=== PATIENT | male | born 1990 | race Two or more races ===

== ENCOUNTER → 2017-04-18 | Outpatient (CLI) | payer BC ==
--- NOTE | ~2017-04-18 | EE ---
Unit #: [id number] #: [id number] Patient: EVERT HOWARD [id number] [address] [address] [id number] O MR#: [id number] NAME: EVERT HOWARD : 1990 SEX: M STUDY DATE/TIME: 04/18/2017 UNIT: CEEG ROOM: STUDY DESCRIPTION: EEG Attending Physician: Anna Hernandez M.D. Referring Physician: Anna Hernandez M.D. Primary Care Physician: No Primary Care Physician NEURODIAGNOSTICS REPORT EXAM EEG. TECH Amanda. REASON FOR STUDY Seizures. TECHNICAL INFORMATION This is a routine EEG performed using the standard international 10-20 system of electrode placement. Photic stimulation was performed. Hyperventilation was also performed. REPORT Throughout the entire study, the best background rhythm seen is approximately 9-10 Hz. This rhythm is seen in both posterior head regions symmetrically and does attenuate to eye opening and closure. Hyperventilation was performed, which failed to reproduce any abnormal buildup. Photic stimulation was performed, which did not elicit any specific epileptiform abnormalities. Throughout the entire study there were no electrographic seizures recorded, nor were there any independent epileptiform abnormalities seen. There was no sleep recorded during the EEG. INTERPRETATION This is a normal awake EEG. A normal EEG does not rule out the possibility of a seizure disorder. Clinical correlation is advised. Dictated by... Keith Gonzalez II., M.D. GWS/timothy TD: 04/20/2017 11:04 JOB #: [id number] Unit #: [id number] #: [id number] Patient: EVERT HOWARD NEURODIAGNOSTICS REPORT Page 1 of 1 X NEURODIAGNOSTICS REPORT
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
== END | disposition home or self-care (01) ==
LOC: CEEG 07:00
DX: G43.019 Migraine without aura, intractable, without status migrainosus (principal); G40.219 Localization-related (focal) (partial) symptomatic epilepsy and epileptic syndromes with complex partial seizures, intractable, without status epilepticus; J34.89 Other specified disorders of nose and nasal sinuses
CPT/HCPCS: 70553; 95816; A9577